=== PATIENT | male | born 1985 | race Caucasian/White ===

== ENCOUNTER 2016-08-31 22:52 | Emergency (ER) | payer SELFPAY ==
--- NOTE | 2016-09-01 01:34 | ED NURSING NOTES ---
Clinical Report - Nurses [place] [address] [place] [address] 08/31/2016 22:54 Patient: EMILIE ZAVALA TRIAGE Triage time 23:17. Chief Complaint: FATIGUE and WEAKNESS (pt states he feels like his BS is high (does not monitor at home)). --23:23 Tashia Hamilton R.N. 23:17 08/31/16. BP: 122/80. HR: 80. RR: 16. O2 saturation: 99% on room air. Temp: 98.6 F (oral). Arauz-Cervantes pain scale: 4/10. --23:23 Tashia Hamilton R.N. Weight: 95.2 kg stated. Height/Length: 70 inches Per Patient. BMI: 30.1. --23:21 Tashia Hamilton R.N. Medications INSULIN 70/30 30 units, 2x a day. --23:20 Tashia Hamilton R.N. Allergies No Known Drug Allergy. --23:20 Tashia Hamilton R.N. History Arrived by private vehicle. Historian: patient. Accompanied by family. Primary physician (None). ( pt was in the hospital one year ago and told to take 30units of 70/30 insulin twice daily.). Onset. (about 2 days ago). PAST MEDICAL HX: Immunizations: status is unknown. SOCIAL HX: Never smoker. No alcohol use or drug use. NUTRITIONAL RISK ASSESSMENT: The nutritional risk assessment revealed no deficiencies. FUNCTIONAL ASSESSMENT: Functional assessment: no impairments noted. --23:23 Tashia Hamilton R.N. PROBLEMS: Diabetes Mellitus. --23:21 Tashia Hamilton R.N. PHYSICAL ASSESSMENT Ambulatory to room. Patient gowned. GENERAL / NEURO / PSYCH: Alert. Oriented X 4. Appears in no acute distress. HEENT: Mucous membranes are pink. RESPIRATORY: Respirations not labored. CVS: Capillary refill less than 2 seconds. SKIN: Skin is warm and dry. --23:23 Tashia Hamilton R.N. NURSING PROGRESS NOTES Head of bed elevated. Two patient identifiers checked. Call light placed in reach. Side rails up x 1. Bed placed in lowest position. Brakes of bed on. --23:23 Tashia Hamilton R.N. Patient ready for evaluation- chart flagged. --23:23 Tashia Hamilton R.N. Finger stick glucose: 244; performed by nurse. --23:32 Tashia Hamilton R.N. 00:36. Patient ID band checked for patient name and birthdate: patient confirmed. Clean catch urine collected with return of yellow-colored clear urine; sample sent to lab for urinalysis. Specimen labeled in the presence of the patient. --00:36 Rey Sierra R.N. 00:38 09/01/2016 Site #1 started via IV in the right wrist with an 20g angiocath, with aseptic technique and good blood return; one attempt. Blood drawn: rainbow set. Labeled in the presence of the patient and sent to the lab. Saline lock flushed with 10 mL saline. --00:43 Rey Sierra R.N. 00:43 09/01/2016 Started bag #1 1000 mL IV Fluids IV NS (Saline); at 1000 mL/hr over 1 hour(s) via site #1 --00:43 Rey Sierra R.N. 01:08 09/01/16. BP: 121/74. HR: 72. RR: 15. O2 saturation: 95%. --01:09 Tashia Hamilton R.N. DISPOSITION / DISCHARGE 01:45 09/01/2016 IV Fluids IV NS Discontinued: bag #1 completed. Total amount infused: 1000 mL. IV patency established. IV site checked: no pain, redness, or swelling. IV flushed thoroughly. --01:50 Tashia Hamilton R.N. 01:50 09/01/2016 Site #1 removed upon discharge. Catheter intact. Manual pressure and bandage applied. --01:50 Tashia Hamilton R.N. Condition at departure: improved and stable. No learning barriers present. Discharge instructions provided and reviewed with the patient. Follow up contact number. Patient verbalized understanding. Written instructions provided in Greenlandic. The patient was discharged home and accompanied by driver manager. He left the Emergency Department ambulatory and via private vehicle. Communication Arts Lecturer driving. --01:51 Tashia Hamilton R.N. 01:49 09/01/16. BP: 100/55. HR: 76. RR: 15. O2 saturation: 94% on room air. Temp: deferred. Pain level now: 0/10. --01:51 Tashia Hamilton R.N. Locked/Released at 09/01/2016 1:51 by Tashia Hamilton R.N.
--- NOTE | 2016-09-01 01:34 | ED ORDER SUMMARY ---
..... Patient: EMILIE ZAVALA OrderSheet [facility] VisitID: [id number] [place] [address] 30y, M Registration Date/Time: 08/31/2016 ORDER SHEET Weight: 95.2 kg (stated) Allergies: No Known Drug Allergy GENERAL ORDERS: CBC w Diff Urgent (00:09/01/2016 Jairon GIBBS) (Ack 0:08 IJurca ER Tech1) (0:39 CFalkner R.N.) CMP Urgent (00:09/01/2016 Jairon GIBBS) (Ack 0:08 IJurca ER Tech1) (0:39 CFalkner R.N.) UA-Culture if indicated Urgent (00:09/01/2016 Jairon GIBBS) (Ack 0:17 IJurca ER Tech1) (Sent 0:36 IJurca ER Tech1) (0:39 CFalkner R.N.) MEDICATION ORDERS: IV FLUIDS: IV NS : initial bolus 1000 mL (1000 mL/hr), then none - (NOW) (00:09/01/2016 Jairon GIBBS) (Ack 0:37 JQuivey R.N.) (0:43 JQuivey R.N.) ORDER SHEET NOTES: [Electronically signed by Tashia Hamilton R.N. (01:51 09/01/2016)] [Electronically signed by Caitlin Ray MD (18:01 09/10/2016)] [Electronically locked/signed by Tashia Hamilton R.N. (01:51 09/01/2016)]
--- NOTE | 2016-09-01 01:34 | ED CLINICAL REPORT ---
Clinical Report - Physicians/Mid Levels [facility] [address] [place] [address] 08/31/2016 22:54 Patient: EMILIE ZAVALA Time Seen: 23:41. Arrived- By private vehicle. Historian- patient. HISTORY OF PRESENT ILLNESS Chief Complaint: fatigue, elevated blood sugar. At its maximum, severity described as moderate. When seen in the E.D., severity described as moderate. Modifying factors. Not worsened by anything. Not relieved by anything. This started about 2 days ago and is still present. No loss of appetite, weight loss, visual disturbance, muscle aches or weakness. He has had a headache and fatigue. Denies sleep problem. No decreased urine output. (PT states he has not had his blood sugar checked in a while, and feels that his insulin dose is too low.). Similar symptoms previously: Milder. Recent medical care: Not recently seen/assessed. REVIEW OF SYSTEMS No fever, sore throat, sinus drainage, nasal congestion or cough. No difficulty breathing, chest pain, abdominal pain, vomiting or diarrhea. No black stools, bloody stools, chills, difficulty with urination or skin rash. No back pain, calf pain, headache, blackouts or double vision. The patient has had nausea. No difficulty with ambulation. All systems otherwise negative, except as recorded above. PAST HISTORY Problems: Diabetes Mellitus. Additional Surgeries: no known surgeries. Medications: INSULIN 70/30 30 units, 2x a day. Allergies: No Known Drug Allergy. SOCIAL HISTORY Never smoker. No alcohol use or drug use. ADDITIONAL NOTES The nursing notes have been reviewed. PHYSICAL EXAM Vital Signs: 08/31/2016 23:17 BP: 122/80. HR: 80. RR: 16. O2 saturation: 99%. Temp: 98.6 F. Arauz-Cervantes pain scale: 4/10. Have been reviewed. Appearance: Alert. No acute distress. Eyes: Pupils equal, round and reactive to light. Eyes normal inspection. ENT: Nose normal. Neck: Normal inspection. CVS: Normal heart rate and rhythm. Heart sounds normal. Pulses normal. Respiratory: No respiratory distress. Breath sounds normal. Abdomen: No visible injury. Soft and nontender. Back: Normal inspection. No CVA tenderness. Skin: Skin warm and dry. Normal skin color. No rash. Normal skin turgor. Extremities: Extremities exhibit normal ROM. No lower extremity edema. Neuro: Oriented X 3. No motor deficit. No sensory deficit. LABS, X-RAYS, AND EKG Laboratory Tests: UA-Culture if indicated: (HEATH: 09/01/2016 00:41) ( [facility] 09/01/2016 01:00) Final results Test Result Flag Units (Reference) URINE COLOR YELLOW URINE APPEARANCE CLEAR URINE GLUCOSE 3+ (NEGATIVE) URINE BILIRUBIN NEGATIVE (NEGATIVE) URINE KETONE TRACE (NEGATIVE) URINE SPECIFIC GRAVITY 1.010 (1.010-1.030) URINE PH 6.5 (5.0-8.0) URINE PROTEIN NEGATIVE (NEGATIVE) URINE UROBILINOGEN >=8.0 EU/dL (0.2-1.0) URINE NITRITE NEGATIVE (NEGATIVE) URINE BLOOD NEGATIVE (NEGATIVE) URINE LEUK ESTERASE NEGATIVE (NEGATIVE) URINE RBC 0-1 rbc/hpf (0-1) URINE WBC 0-1 wbc/hpf (0-1) URINE EPITHELIAL CELLS 0-1 EPI/hpf (0-5) URINE BACTERIA NONE SEEN (NONE SEEN) URINE COMMENT CULT NOT INDICATED URINE CULTURES ARE SET-UP BASED ON THE FOLLOWING CRITERIA:POSITIVE NITRITEPOSITIVE LEUKOCYTE ESTERASEGREATER THAN 10 WHITE BLOOD CELLSMODERATE (2+) OR GREATER BACTERIA CBC w Diff: (HEATH: 09/01/2016 00:20) ( [facility] 09/01/2016 00:34) Final results Test Result Flag Units (Reference) WHITE BLOOD COUNT 6.1 K/uL (4.5-11.5) RED BLOOD COUNT 4.70 M/uL (4.50-5.90) HEMOGLOBIN 13.6 gm/dL (13.5-17.5) HEMATOCRIT 40.1 L % (41.0-53.0) MEAN CELL VOLUME 85 fL (80-100) MEAN CORPUSCULAR HGB 29 pg (26-34) MEAN CORPUSCULAR HGB CONC 34 g/dL (31-37) RED CELL DISTRIBUTION WIDTH 12.7 % (11.6-14.8) PLATELET COUNT 163 K/uL (150-400) NEUTROPHIL % 73.9 % (50-75) LYMPH % 16.8 L % (25-40) MONO % 7.6 % (3-14) EOSINOPHIL % 1.5 % (0-4) BASOPHIL % 0.2 % (0-2) CMP: (HEATH: 09/01/2016 00:20) ( MsgRcvd 09/01/2016 01:06) Final results Test Result Flag Units (Reference) GLUCOSE 279 H mg/dL (70-110) BUN 14 mg/dL (7-18) CREATININE 0.8 mg/dL (0.6-1.3) Estimated GFR >60 mL/min Estimated GFR- >60 mL/min Note: Persistent reduction over 3 months in eGFR<60 mL/min/1.73 m2 defines CKD. Patients with eGFR values>=60 mL/min/1.73 m2 may also have CKD if evidence ofpersistent proteinuria. Additional information may be foundat www.kidney.org. SODIUM 139 mmol/L (136-145) POTASSIUM 3.6 mmol/L (3.5-5.1) CHLORIDE 103 mmol/L (98-107) CARBON DIOXIDE 28 mmol/L (21-32) CALCIUM 8.5 mg/dL (8.5-10.1) TOTAL PROTEIN 6.9 g/dL (6.4-8.2) ALBUMIN 3.4 g/dL (3.3-5.0) BILIRUBIN, TOTAL 0.5 mg/dL (0.0-1.0) ALKALINE PHOSPHATASE 84 U/L (46-116) AST (SGOT) 16 U/L (15-37) ALT (SGPT) 24 U/L (12-78) . Pulse Oximetry: 08/31/2016 23:17 O2 saturation: 99%. (FIO2 - room air). Interpretation: normal. PROGRESS AND PROCEDURES Course of Care: PT was given a liter of IV fluid and worked up. His blood sugar was 279. The pt had not yet taken his evening insulin, and I did advise him to increase his insulin dose, starting tonight. Pt states he will call the clinic in the morning to set up an appointment for follow-up. Patient counseled in person regarding the patient's stable condition, test results, diagnosis and need for follow-up. Concerns were addressed. Old medical records reviewed. Disposition: Discharged. Condition: stable. CLINICAL IMPRESSION Moderate hyperglycemia INSTRUCTIONS (Your labs look okay, other than your blood sugar being elevated at 279. It is very important that you follow up with a primary care doctor who can see you consistently and get you on a better diabetes medication regimen. For now, you may increase your insulin dose to 35 units twice a day. Please call first thing tomorrow morning to set up a follow-up appointment.). Warnings: Further evaluation is necessary. It is very important to follow up with a physician. GENERAL WARNINGS: Return or contact your physician immediately if your condition worsens or changes unexpectedly, if not improving as expected, or if other problems arise. Your Current Medications: CONTINUE TAKING THE FOLLOWING MEDICATIONS: INSULIN 70/30* : 30 units 2x a day. Understanding of the discharge instructions verbalized by patient. Follow-up with: [facility], , , [address] [place] [address], , Antwan, Ramana up. Call for the next available appointment. Reason for referral: Follow up for eval of diabetes meds. (Electronically signed by Caitlin Ray MD 09/10/2016 18:01)
--- NOTE | 2016-09-01 01:34 | ED NURSING NOTES ---
Clinical Report - Nurses [place] [address] [place] [address] 08/31/2016 22:54 Patient: EMILIE ZAVALA TRIAGE Triage time 23:17. Chief Complaint: FATIGUE and WEAKNESS (pt states he feels like his BS is high (does not monitor at home)). --23:23 Tashia Hamilton R.N. 23:17 08/31/16. BP: 122/80. HR: 80. RR: 16. O2 saturation: 99% on room air. Temp: 98.6 F (oral). Arauz-Cervantes pain scale: 4/10. --23:23 Tashia Hamilton R.N. Weight: 95.2 kg stated. Height/Length: 70 inches Per Patient. BMI: 30.1. --23:21 Tashia Hamilton R.N. Medications INSULIN 70/30 30 units, 2x a day. --23:20 Tashia Hamilton R.N. Allergies No Known Drug Allergy. --23:20 Tashia Hamilton R.N. History Arrived by private vehicle. Historian: patient. Accompanied by family. Primary physician (None). ( pt was in the hospital one year ago and told to take 30units of 70/30 insulin twice daily.). Onset. (about 2 days ago). PAST MEDICAL HX: Immunizations: status is unknown. SOCIAL HX: Never smoker. No alcohol use or drug use. NUTRITIONAL RISK ASSESSMENT: The nutritional risk assessment revealed no deficiencies. FUNCTIONAL ASSESSMENT: Functional assessment: no impairments noted. --23:23 Tashia Hamilton R.N. PROBLEMS: Diabetes Mellitus. --23:21 Tashia Hamilton R.N. PHYSICAL ASSESSMENT Ambulatory to room. Patient gowned. GENERAL / NEURO / PSYCH: Alert. Oriented X 4. Appears in no acute distress. HEENT: Mucous membranes are pink. RESPIRATORY: Respirations not labored. CVS: Capillary refill less than 2 seconds. SKIN: Skin is warm and dry. --23:23 Tashia Hamilton R.N. NURSING PROGRESS NOTES Head of bed elevated. Two patient identifiers checked. Call light placed in reach. Side rails up x 1. Bed placed in lowest position. Brakes of bed on. --23:23 Tashia Hamilton R.N. Patient ready for evaluation- chart flagged. --23:23 Tashia Hamilton R.N. Finger stick glucose: 244; performed by nurse. --23:32 Tashia Hamilton R.N. 00:36. Patient ID band checked for patient name and birthdate: patient confirmed. Clean catch urine collected with return of yellow-colored clear urine; sample sent to lab for urinalysis. Specimen labeled in the presence of the patient. --00:36 Rey Sierra R.N. 00:38 09/01/2016 Site #1 started via IV in the right wrist with an 20g angiocath, with aseptic technique and good blood return; one attempt. Blood drawn: rainbow set. Labeled in the presence of the patient and sent to the lab. Saline lock flushed with 10 mL saline. --00:43 Rey Sierra R.N. 00:43 09/01/2016 Started bag #1 1000 mL IV Fluids IV NS (Saline); at 1000 mL/hr over 1 hour(s) via site #1 --00:43 Rey Sierra R.N. 01:08 09/01/16. BP: 121/74. HR: 72. RR: 15. O2 saturation: 95%. --01:09 Tashia Hamilton R.N. DISPOSITION / DISCHARGE 01:45 09/01/2016 IV Fluids IV NS Discontinued: bag #1 completed. Total amount infused: 1000 mL. IV patency established. IV site checked: no pain, redness, or swelling. IV flushed thoroughly. --01:50 Tashia Hamilton R.N. 01:50 09/01/2016 Site #1 removed upon discharge. Catheter intact. Manual pressure and bandage applied. --01:50 Tashia Hamilton R.N. Condition at departure: improved and stable. No learning barriers present. Discharge instructions provided and reviewed with the patient. Follow up contact number. Patient verbalized understanding. Written instructions provided in Albanian. The patient was discharged home and accompanied by floor space allocator. He left the Emergency Department ambulatory and via private vehicle. Production Coordinator driving. --01:51 Tashia Hamilton R.N. 01:49 09/01/16. BP: 100/55. HR: 76. RR: 15. O2 saturation: 94% on room air. Temp: deferred. Pain level now: 0/10. --01:51 Tashia Hamilton R.N. Locked/Released at 09/01/2016 1:51 by Tashia Hamilton R.N.
--- NOTE | 2016-09-01 01:34 | ED ORDER SUMMARY ---
..... Patient: EMILIE ZAVALA OrderSheet [facility] VisitID: [id number] [place] [address] 30y, M Registration Date/Time: 08/31/2016 ORDER SHEET Weight: 95.2 kg (stated) Allergies: No Known Drug Allergy GENERAL ORDERS: CBC w Diff Urgent (00:09/01/2016 Jairon GIBBS) (Ack 0:08 IJurca ER Tech1) (0:39 CFalkner R.N.) CMP Urgent (00:09/01/2016 Jairon GIBBS) (Ack 0:08 IJurca ER Tech1) (0:39 CFalkner R.N.) UA-Culture if indicated Urgent (00:09/01/2016 Jairon GIBBS) (Ack 0:17 IJurca ER Tech1) (Sent 0:36 IJurca ER Tech1) (0:39 CFalkner R.N.) MEDICATION ORDERS: IV FLUIDS: IV NS : initial bolus 1000 mL (1000 mL/hr), then none - (NOW) (00:09/01/2016 Jairon GIBBS) (Ack 0:37 JQuivey R.N.) (0:43 JQuivey R.N.) ORDER SHEET NOTES: [Electronically signed by Tashia Hamilton R.N. (01:51 09/01/2016)] [Electronically signed by Caitlin Ray MD (18:01 09/10/2016)] [Electronically locked/signed by Tashia Hamilton R.N. (01:51 09/01/2016)]
--- NOTE | 2016-09-10 18:01 | ED MED RECONCILIATION SUMMARY ---
Patient: EMILIE ZAVALA Medication Reconciliation Report [facility] VisitID: [id number] [address] [place] [address] 30y, M Registration Date/Time: 08/31/2016 Weight: 95.2 kg Height/Length: 70 in. BMI: 30.1 ALLERGIES: No Known Drug Allergy The patient's Home Medications are listed below: CONTINUE TAKING THE FOLLOWING MEDICATIONS: INSULIN 70/30 30 units, 2x a day The source(s) of the original Home Medication information: Not obtained. The following Medications were given to the patient in the Emergency Department: IV NS IV Fluids bolus 0, then 1000 mL/hr, administered: 09/01/2016 12:43:00 AM The following Medications were prescribed to the patient: None.
--- NOTE | 2016-09-10 18:01 | ED DISCHARGE INSTRUCTIONS ---
Patient: CRISTIAN ZAVALAO General Instructions [facility] VisitID: [id number] [place] [address] 30y, M Registration Date/Time: 08/31/2016 Moderate hyperglycemia INSTRUCTIONS (Your labs look okay, other than your blood sugar being elevated at 279. It is very important that you follow up with a primary care doctor who can see you consistently and get you on a better diabetes medication regimen. For now, you may increase your insulin dose to 35 units twice a day. Please call first thing tomorrow morning to set up a follow-up appointment.). Warnings: Further evaluation is necessary. It is very important to follow up with a physician. GENERAL WARNINGS: Return or contact your physician immediately if your condition worsens or changes unexpectedly, if not improving as expected, or if other problems arise. Your Current Medications: CONTINUE TAKING THE FOLLOWING MEDICATIONS: INSULIN 70/30* : 30 units 2x a day. Understanding of the discharge instructions verbalized by patient. Follow-up with: [facility], , , [address] [place] [address], , Antwan, Ramana up. Call for the next available appointment. Reason for referral: Follow up for eval of diabetes meds. ADDITIONAL INFORMATION Diabetes with High Blood Sugar You have been treated for high blood sugar (hyperglycemia). This may be becauseof an infection or other illness;eating too many sweets or starches ; not taking enough insulin. Home care High blood sugar may cause symptoms that you can learn to recognize, such as these: If you feel like your blood sugar may be too high, measure it using a blood or urine test. If it is above your usual range, use the "sliding scale"rRegular insulin dose your doctor gave you to correct this. If no "sliding scale" orders were given, contact your doctor for further advice. If your blood sugar is over 300, and you can't reach your doctor, go to the hospital emergency room. Monitor and write down your blood sugars - and insulin dose, if you take insulin - atleast twice a day. Do this before breakfast and before dinner. Do this for the next 3 to 5 days. Follow-up care Follow up with your health care provderduring the next week to review your blood sugar records. You will find out if you need to adjust your dose of insulin or other medicine for blood sugar. When to seek medical care Get prompt medical attention if either of these occur: High blood sugar.Symptoms are frequent urination, feeling dizzy, thirst, headache, nausea or vomiting, abdominal pain, and drowsiness or loss of consciousness. Low blood sugar. Symptoms are fatigue, headache, shakes, excess sweating, hunger, anxiety, reduced vision, drowsiness, weakness, confusion or loss of consciousness, and seizure. You have been given the following additional information: Diabetic Hyperglycemia (Electronically signed by Caitlin Ray MD 09/10/2016 18:01)
--- NOTE | 2016-09-10 18:01 | ED DISCHARGE INSTRUCTIONS ---
Patient: CRISTIAN ZAVALAO General Instructions [facility] VisitID: [id number] [place] [address] 30y, M Registration Date/Time: 08/31/2016 Moderate hyperglycemia INSTRUCTIONS (Your labs look okay, other than your blood sugar being elevated at 279. It is very important that you follow up with a primary care doctor who can see you consistently and get you on a better diabetes medication regimen. For now, you may increase your insulin dose to 35 units twice a day. Please call first thing tomorrow morning to set up a follow-up appointment.). Warnings: Further evaluation is necessary. It is very important to follow up with a physician. GENERAL WARNINGS: Return or contact your physician immediately if your condition worsens or changes unexpectedly, if not improving as expected, or if other problems arise. Your Current Medications: CONTINUE TAKING THE FOLLOWING MEDICATIONS: INSULIN 70/30* : 30 units 2x a day. Understanding of the discharge instructions verbalized by patient. Follow-up with: [facility], , , [address] [place] [address], , Antwan, Ramana up. Call for the next available appointment. Reason for referral: Follow up for eval of diabetes meds. ADDITIONAL INFORMATION Diabetes with High Blood Sugar You have been treated for high blood sugar (hyperglycemia). This may be becauseof an infection or other illness;eating too many sweets or starches ; not taking enough insulin. Home care High blood sugar may cause symptoms that you can learn to recognize, such as these: If you feel like your blood sugar may be too high, measure it using a blood or urine test. If it is above your usual range, use the "sliding scale"rRegular insulin dose your doctor gave you to correct this. If no "sliding scale" orders were given, contact your doctor for further advice. If your blood sugar is over 300, and you can't reach your doctor, go to the hospital emergency room. Monitor and write down your blood sugars - and insulin dose, if you take insulin - atleast twice a day. Do this before breakfast and before dinner. Do this for the next 3 to 5 days. Follow-up care Follow up with your health care provderduring the next week to review your blood sugar records. You will find out if you need to adjust your dose of insulin or other medicine for blood sugar. When to seek medical care Get prompt medical attention if either of these occur: High blood sugar.Symptoms are frequent urination, feeling dizzy, thirst, headache, nausea or vomiting, abdominal pain, and drowsiness or loss of consciousness. Low blood sugar. Symptoms are fatigue, headache, shakes, excess sweating, hunger, anxiety, reduced vision, drowsiness, weakness, confusion or loss of consciousness, and seizure. You have been given the following additional information: Diabetic Hyperglycemia (Electronically signed by Caitlin Ray MD 09/10/2016 18:01)
--- NOTE | 2016-09-10 18:01 | ED MAR SUMMARY ---
..... Medication Administration Record [facility] [address] [place] [address] Patient: EMILIE ZAVALA Visit ID: [id number] 30y, M Weight: 95.2 kg Height/Length: 70 in BMI: 30.1 ALLERGIES: No Known Drug Allergy Start 00:43 09/01/2016 Rey Sierra, R.N., Stop 01:45 09/01/2016 Tashia Hamilton RJonNJon Medication Administered: IV NS (SALINE), Dose: IV Fluids over 1 hour(s), Rate: 1000 mL/hr, Dispensed: 1000 mL bag, Site: #1 right wrist. Medication Ordered: IV NS : initial bolus 1000 mL (1000 mL/hr), then none - (NOW).
--- NOTE | 2016-09-10 18:01 | ED MAR SUMMARY ---
..... Medication Administration Record [facility] [address] [place] [address] Patient: EMILIE ZAVALA Visit ID: [id number] 30y, M Weight: 95.2 kg Height/Length: 70 in BMI: 30.1 ALLERGIES: No Known Drug Allergy Start 00:43 09/01/2016 Rey Sierra, R.N., Stop 01:45 09/01/2016 Tashia Hamilton RJonNJon Medication Administered: IV NS (SALINE), Dose: IV Fluids over 1 hour(s), Rate: 1000 mL/hr, Dispensed: 1000 mL bag, Site: #1 right wrist. Medication Ordered: IV NS : initial bolus 1000 mL (1000 mL/hr), then none - (NOW).
--- NOTE | 2016-09-10 18:01 | ED MED RECONCILIATION SUMMARY ---
Patient: EMILIE ZAVALA Medication Reconciliation Report [facility] VisitID: [id number] [address] [place] [address] 30y, M Registration Date/Time: 08/31/2016 Weight: 95.2 kg Height/Length: 70 in. BMI: 30.1 ALLERGIES: No Known Drug Allergy The patient's Home Medications are listed below: CONTINUE TAKING THE FOLLOWING MEDICATIONS: INSULIN 70/30 30 units, 2x a day The source(s) of the original Home Medication information: Not obtained. The following Medications were given to the patient in the Emergency Department: IV NS IV Fluids bolus 0, then 1000 mL/hr, administered: 09/01/2016 12:43:00 AM The following Medications were prescribed to the patient: None.
== END 2016-09-01 01:49 | disposition home or self-care (01) ==
LOC: ED SRH 22:52
DX: E11.65 Type 2 diabetes mellitus with hyperglycemia (principal); Z79.4 Long term (current) use of insulin
CPT/HCPCS: 90004; 90098; 90100; 95059